=== PATIENT | female | born 2000 | race Two or more races ===

== ENCOUNTER 2025-06-28 17:13 | Emergency (ER) | payer BC ==
[2025-06-28] MEDS ORDERED: Ibuprofen 200 MG TAB ONE (18:04)
== END 2025-06-28 18:48 | disposition home or self-care (01) ==
LOC: ERS 17:13
DX: S52.591A Other fractures of lower end of right radius, initial encounter for closed fracture (principal); V00.131A Fall from skateboard, initial encounter
CPT/HCPCS: 99283